=== PATIENT | female | born 2000 | race Caucasian/White ===

== ENCOUNTER 2020-06-23 14:47 | Outpatient (REF) | payer MEDICAID, SELFPAY ==
[2020-06-23 15:31] LABS: COVID-19 Test Negative (Negative)
== END 2020-06-23 14:48 | disposition home or self-care (01) ==
LOC: HO.LAB 14:47
PROVIDERS: PCP Registered Nurse; Visit Provider Internal Medicine
DX: Z20.828 Contact with and (suspected) exposure to other viral communicable diseases (principal)
CPT/HCPCS: 87635

== ENCOUNTER 2020-07-08 16:37 | Outpatient (REF) | payer MEDICAID, SELFPAY ==
[2020-07-08 17:31] LABS: COVID-19 Test Negative (Negative)
== END 2020-07-08 16:38 | disposition home or self-care (01) ==
LOC: HO.LAB 16:37
PROVIDERS: Visit Provider Internal Medicine
DX: Z20.828 Contact with and (suspected) exposure to other viral communicable diseases (principal)
CPT/HCPCS: 87635

== ENCOUNTER 2020-09-14 13:51 | Outpatient (REF) | payer OTHER, SELFPAY ==
[2020-09-14 14:33] LABS: COVID-19 Test Negative (Negative)
== END 2020-09-14 13:52 | disposition home or self-care (01) ==
LOC: HO.EMPCOV 13:51
PROVIDERS: Visit Provider Internal Medicine
DX: Z20.828 Contact with and (suspected) exposure to other viral communicable diseases (principal)
CPT/HCPCS: 87635; C9803

== ENCOUNTER 2020-10-16 08:52 | Outpatient (REF) | payer OTHER, SELFPAY ==
[2020-10-16 09:35] LABS: COVID-19 Test Negative (Negative); IDNOW Serial# 55D5AD1C
== END 2020-10-16 08:53 | disposition home or self-care (01) ==
LOC: HO.EMPCOV 08:52
PROVIDERS: Visit Provider Internal Medicine
DX: Z12.31 Encounter for screening mammogram for malignant neoplasm of breast (principal)
CPT/HCPCS: 36415; 87635; C9803

== ENCOUNTER 2022-09-23 11:14 | Outpatient (REF) | payer MEDICAID, SELFPAY ==
--- NOTE | ~2022-09-23 | XR_ITS ---
EXAMINATION: XR CHEST CLINICAL INFORMATION: Mild intermittent asthma with acute exacerbation. Wheezing. COMPARISON: None TECHNIQUE: 2 views of the chest were obtained. FINDINGS: The lungs are well expanded. There is no focal consolidation, edema, or effusion. No pneumothorax. The cardiomediastinal silhouette is within normal limits. No acute osseous abnormality. Bilateral nipple shadows noted. XR/XR chest 2V IMPRESSION: Clear lungs.
== END 2022-09-23 11:15 | disposition home or self-care (01) ==
LOC: HO.XRAY 11:14
PROVIDERS: PCP Registered Nurse; Visit Provider Registered Nurse
DX: J45.21 Mild intermittent asthma with (acute) exacerbation (principal)
CPT/HCPCS: 71046

== ENCOUNTER 2024-02-26 06:54 | Outpatient (REF) | payer OTHER, SELFPAY ==
[2024-02-26 07:52] LABS: Hemoglobin 12.9 g/dl (12.0-16.0); Mean Corpuscular HGB Conc 33.1 g/dl (31.0-35.0); Mean Corpuscular Hemoglobin 29.5 pg (27.0-33.0); Mean Corpuscular Volume 89.2 fL (80.0-98.0); Mean Platelet Volume 9.9 fL (9.4-12.3); Platelet Count 253 X10*3/uL (160-400); Red Blood Count 4.37 X10*6/uL (4.20-5.50); Red Cell Distribution Width 12.1 % (11.0-16.0); White Blood Count 5.6 X10*3/uL (4.8-10.8)
[2024-02-26 07:57] LABS: Estimated Average Glucose 105 mg/dL; Hemoglobin A1c % 5.3 % (<6.0)
[2024-02-26 08:46] LABS: TSH reflex Free T4 1.85 uIU/mL (0.32-4.0)
[2024-02-27 09:44] LABS: Follicle Stimulating Hormone 10.4 mIU/mL; Lutenizing Hormone 9.3 mIU/mL; Prolactin 24.3 ng/mL
[2024-03-02 23:59] LABS: Estradiol Ultra Sensitive 47 pg/mL
[2024-03-04 18:24] LABS: Progesterone 0.2 ng/mL
== END 2024-02-26 06:55 | disposition home or self-care (01) ==
LOC: HO.LAB 06:54
PROVIDERS: PCP Registered Nurse; Visit Provider Advanced Practice Midwife
DX: N92.6 Irregular menstruation, unspecified (principal); N97.9 Female infertility, unspecified
CPT/HCPCS: 36415; 82670; 83001; 83002; 83036; 84144; 84146; 84443; 85027

== ENCOUNTER 2024-03-13 06:58 | Outpatient (REF) | payer OTHER, SELFPAY ==
[2024-03-21 22:43] LABS: Progesterone 10.7 ng/mL
== END 2024-03-13 06:59 | disposition home or self-care (01) ==
LOC: HO.LAB 06:58
PROVIDERS: Visit Provider Advanced Practice Midwife
DX: N92.6 Irregular menstruation, unspecified (principal); N97.9 Female infertility, unspecified
CPT/HCPCS: 36415; 84144

== ENCOUNTER 2024-08-29 07:54 | Outpatient (REF) | payer OTHER, SELFPAY | END 2024-08-29 07:55 | disposition home or self-care (01) | LOC: HO.US 07:54 | PROVIDERS: PCP Registered Nurse; Visit Provider Student in an Organized Health Care Education/Training Program | DX: N94.6 Dysmenorrhea, unspecified (principal) | CPT/HCPCS: 76830; 76856 ==